=== PATIENT | female | born 1945 | race Caucasian/White ===

== ENCOUNTER → 2016-08-19 16:42 | Outpatient (CLI) | payer MEDICARE, BC ==
[2013-09-11 07:19] VITALS: BMI 34.0
[~2016-08-19 16:42] MED LIST: ALEVE220 MG PO; ASPIRIN EC81 M1 PO; CALTRATE 600 M600 M1 PO; K-DUR20 MEQ PO; LASIX20 MG PO; LEVOXYL25 MCG PO; PLAVIX75 MG PO; PRILOSEC20 MG PO; PROVENTIL HFA6.7 GM INH; SYNTHROID50 MCG PO; TOPROL XL50 MG PO; VITAMIN D5000 UNIT PO; VITAMIN E1000 UNIT
== END | disposition home or self-care (01) ==
LOC: D.MAMMO 13:15
DX: Z12.31 Encounter for screening mammogram for malignant neoplasm of breast (principal)

== ENCOUNTER 2018-09-21 12:00 | Outpatient (CLI) | payer MEDICARE, BC ==
[2013-09-11 07:19] VITALS: BMI 34.0
== END 2018-09-21 12:30 | disposition home or self-care (01) ==
LOC: D.MAMMO 12:00
PROVIDERS: ATTEND Family Medicine
DX: Z12.31 Encounter for screening mammogram for malignant neoplasm of breast (principal)